=== PATIENT | female | born 1985 | race Caucasian/White ===

== ENCOUNTER 2017-09-10 06:30 | Inpatient (IN) | payer OTHER ==
[2017-09-10] MEDS ORDERED: BUTORPHANOL TARTRATE 1 MG/ML VIAL IVPB ONE (08:11)
[2017-09-10] MEDS ORDERED: PROMETHAZINE HCL 25 MG/1 ML VIAL IVPUSH ONE (08:11)
[2017-09-10] MEDS ORDERED: DEXTROSE 5%-LACTATED RINGERS 1,000 ML IV SCH (08:15)
--- NOTE | 2017-09-10 08:25 | HP ---
Past Medical History - Primary Care Physician PCP:: Nieves Maynard - Admission Chief Complaint: 32 yrs , 39.6/7 weeks iup , onset Lp since 4.00AM . History of Present Illness: PNC at , [facility] wt gain 30 lbs work UP : A pos, Rpr nr, Hbsag neg, Rubella immune , Sickle neg , CF screen neg , gc/ct neg , Hiv neg ,1 hr gtt 109,, Gbs neg , h/h 12.2/38.6 , plt 158 sono done by [facility] for growth monitoring .07/22/17 sono polo 15.0, efw 4'12"54%tile , bpp8/8 . Last pap 03/30/16 NILM History Source: Patient, Medical Record Limitations to Obtaining History: No Limitations - Past Medical History CATTYMAN: No: Migraine, Seizure Cardiovascular: No: HTN, Murmur Pulmonary: No: Asthma, COPD Gastrointestinal: Yes: Constipation. No: Gastritis Hepatobiliary: No: Choledocholithiasis, Hepatitis B Renal/: No: UTI ...: 2 ...Para: 1 (07/10/2015 7'9" [facility] ) ...Term: 1 ...LMP: 12/05/16 ... Weeks Gestation by Dates: 39.6 ...EDC by Dates: 09/11/17 ...EDC by Sono: 09/11/17 Heme/Onc: No: Anemia Infectious Disease: Yes: Tuberculosis (h/o expposure at age 11 years & treated) . No: AIDS, HIV, STD's Psych: No: Addictions, Anxiety, Bipolar, Depression, Panic, Psychosis, Schizophrenia - Past Surgical History Past Surgical History: Yes: None Hx Myomectomy: No Hx Transabdominal Cerclage: No - Smoking History Smoking history: Never smoked Have you smoked in the past 12 months: No Aproximately how many cigarettes per day: 0 - Alcohol/Substance Use Hx Alcohol Use: No History of Substance Use: reports: None Home Medications - Allergies Allergies/Adverse Reactions: Allergies Allergy/AdvReac Type Severity Reaction Status Date / Time No Known Allergies Allergy Verified 07/10/15 04:52 - Home Medications Home Medications: Ambulatory Orders Vit/Iron Fum/Folic AC [ Tablet] 1 tab PO DAILY 07/10/15 Acetaminophen [Tylenol .Regular Strength -] 650 mg PO Q3H PRN #0 tablet Benzocaine [Americaine 20% [place] -] 1 spray TP PRN PRN #0 bottle 07/11/15 Ferrous Sulfate [Feosol] 325 mg PO BID #60 ud 07/11/15 Ibuprofen [Motrin -] 200 mg PO Q4H PRN #0 tablet 07/11/15 Vitamins (Sjr) - 1 tab PO DAILY tablet 07/11/15 Witch Belen 50% (Tucks) [Tucks Pads -] 1 pad TP PRN PRN #0 pad 07/11/15 Miscellaneous Medical Supply [Breast Pump, Electronic] 1 each NR ASDIR #1 unit 07/12/15 Physical Exam - Maternity Vital Signs: Vital Signs Temperature 99.1 F 09/10/17 07:26 Pulse Rate 93 H 09/10/17 07:26 Respiratory Rate 20 09/10/17 07:26 Blood Pressure 105/70 09/10/17 07:26 O2 Sat by Pulse Oximetry (%) Selected Entries 09/10/17 08:24 Weight 140 lb Constitutional: Yes: Well Nourished, Mild Distress Eyes: Yes: WNL HENT: Yes: WNL, Normocephalic Neck: Yes: WNL Cardiovascular: Yes: WNL Lungs: Clear to auscultation Breast(s): Yes: WNL. No: Mass - Abdominal Exam/OB Fundal Height: 38 Number of Fetuses: Single Presentation: Vertex Contractions: Yes Regularity: Regular Intensity: Moderate (2-4 min) Monitor Mode: External Heart Rate (range): 150 Heart Rate Location: [facility] Category: I Accelerations: Uniform Decelerations: None - Vaginal Exam/OB Vaginal Bleediing: No Speculum Exam: No Dilatation (cm): 3-4 Effacement (%): 65 Amniotic Membrane Status: Intact Nitrazine Test: Negative Presentation: Vertex/Position Station: -3 - Physical Exam Musculoskeletal: Yes: WNL Extremities: Yes: WNL. No: Calf Tenderness Edema: Yes Edema: LLE: 1+, RLE: 1+ Integumentary: Yes: WNL Deep Tendon Reflex Grade: Normal +2 ...Motor Strength: WNL Psychiatric: Yes: WNL, Alert, Oriented - Labs Lab Results: Laboratory Tests 09/10/17 09/10/17 09/10/17 08:30 08:30 08:30 WBC 8.0 Hgb 13.5 Hct 39.6 D Plt Count 165 Neutrophils % 69.3 Lymphocytes % 20.5 D Monocytes % 9.2 PT with INR 10.10 INR 0.89 PTT (Actin FS) 24.9 L Sodium 140 Potassium 4.1 Chloride 106 Carbon Dioxide 24 BUN 6 L Creatinine 0.6 Random Glucose 85 Calcium 8.5 RPR Titer Blood Type 09/10/17 09/10/17 08:30 08:30 WBC Hgb Hct Plt Count Neutrophils % Lymphocytes % Monocytes % PT with INR INR PTT (Actin FS) Sodium Potassium Chloride Carbon Dioxide BUN Creatinine Random Glucose Calcium RPR Titer Nonreactive Blood Type A POSITIVE Problem List - Problems (1) with 39 completed weeks gestation Code(s): Z3A.39 - 39 WEEKS GESTATION OF (2) Labor established Code(s): [id number] - Assessment/Plan 32 yrs , 39.6/7 weeks in early labor , GBS neg plan : ambulate stadol + phenrgan prn for pain & or epidural labor analgesia trial of labor for vaginal delivery
[2017-09-10 08:31] VITALS: BMI 27.3
[2017-09-10] MEDS ORDERED: OXYTOCIN 30 UNITS in 0.9% NS 30 UNIT/500 ML INFUS.BAG IVPB ONE (08:38)
[2017-09-10 08:54] LABS: BASO % 0.4 % (0-2.0); EOS % 0.6 % (0-4.5); HEMATOCRIT 39.6 % (32.4-45.2); HEMOGLOBIN 13.5 GM/dL (10.7-15.3); LYMPH % 20.5 % (8-40); MCH 33.1 pg (25.7-33.7); MEAN CELL VOLUME 97.3 fl (80-96); MEAN PLT VOLUME 9.3 fl (7.5-11.1); MONO % 9.2 % (3.8-10.2); NEUT % 69.3 % (42.8-82.8); PLATELET COUNT 165 K/MM3 (134-434); RBC 4.08 M/mm3 (3.60-5.2); RDW 13.2 % (11.6-15.6)
[2017-09-10 09:17] LABS: ANION GAP 10 (8-16); BLOOD UREA NITROGEN 6 mg/dL (7-18); CALCIUM 8.5 mg/dL (8.5-10.1); CHLORIDE 106 mmol/L (98-107); CO2 24 mmol/L (21-32); CREATININE 0.6 mg/dL (0.55-1.02); GLUCOSE,RANDOM 85 mg/dL (74-106); POTASSIUM 4.1 mmol/L (3.5-5.1); SODIUM 140 mmol/L (136-145)
[2017-09-10 09:19] LABS: INR 0.89 (0.82-1.09); PROTHROMBIN TIME (PATIENT) 10.1 SEC (9.7-13.0)
[2017-09-10 09:21] LABS: ACTIVATED PTT 24.9 SECONDS (25.2-36.5)
[2017-09-10] MEDS ORDERED: OXYTOCIN 30 UNITS in 0.9% NS 30 UNIT/500 ML INFUS.BAG IVPB SCH (10:20)
--- NOTE | 2017-09-10 10:47 | PN ---
Progress Note, Labor Vaginal Exam #1 Labor Exam Date: 09/10/17 Labor Exam Time: 10:40 Heart Rate (range): 150 Dilatation: 4-5 Effacement (%): 70 Amniotic Membrane Status: Intact Presentation: Vertex/Position Station: -3 Remarks: fhr cat-1 uc irregular, 4-6 min plan pitocin augmentation Selected Entries 09/10/17 10:00 Temperature 98.1 F Pulse Rate 83 Blood Pressure 106/64 Vaginal Exam #2 Labor Exam Date: 09/10/17 Labor Exam Time: 13:15 Heart Rate (range): 150 Dilatation: 4 Effacement (%): 70 Amniotic Membrane Status: Ruptured Presentation: Vertex/Position Station: -2 Remarks: uc 1-2 min fhr cat-1 Selected Entries 09/10/17 13:00 Temperature 98.8 F Pulse Rate 73 Blood Pressure 110/57 Vaginal Exam #3 Labor Exam Date: 09/10/17 Labor Exam Time: 16:50 Heart Rate (range): 150 Dilatation: 8 Effacement (%): 100 Amniotic Membrane Status: Ruptured (forewater still felt , arom done clear fluid) Presentation: Vertex/Position Station: 0 Remarks: fhr cat-1 uc q1-2 min Selected Entries 09/10/17 17:00 Temperature 98.5 F Pulse Rate 84 Blood Pressure 138/67
[2017-09-10] MEDS ORDERED: LIDOCAINE HCL 1% PRESERVATIVE FREE - 30ML VIAL ONE (17:05)
[2017-09-10] MEDS ORDERED: OXYTOCIN 20 UNITS in 0.9% NS 40 UNIT/2,000 ML INFUS.BAG IV ONE (17:06)
[2017-09-10] MEDS ORDERED: BISACODYL 10 MG SUPP.RECT RC PRN (18:47)
[2017-09-10] MEDS ORDERED: ACETAMINOPHEN 325 MG TABLET (FP) PO PRN (18:47)
[2017-09-10] MEDS ORDERED: WITCH HAZEL 50% (TUCKS) 40 PAD/JAR PAD TP PRN (18:47)
[2017-09-10] MEDS ORDERED: METHYLERGONOVINE MALEATE 0.2 MG/1 ML AMP IM PRN (18:47)
[2017-09-10] MEDS ORDERED: oxyCODONE HCL 5 MG TABLET PO PRN (18:47)
[2017-09-10] MEDS ORDERED: BENZOCAINE 28 GM HEMORRHOIDAL OINTMENT TP PRN (18:47)
[2017-09-10] MEDS ORDERED: BENZOCAINE 20% 57 GM BOTTLE TP PRN (18:47)
[2017-09-10] MEDS ORDERED: OXYTOCIN 20 UNITS in 0.9% NS 20 UNIT/1,000 ML INFUS.BAG IV SCH (19:00)
--- NOTE | 2017-09-10 19:05 | PN ---
Delivery - Delivery Vaginal Delivery: No Problems, Spontaneous (baby delievered in Vx, VELIA position , shoulder delievered without difficulty . placenta delivered without problem 2nd degree laceration noted sutured in layers with Chr catgut #2/0 under local anesthesia . Pr exam mucosa & sphincter intact . 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 gbs neg . pnc at [address] [place] [address] Pitocin augmentation given pt did not take any labor analgesia intrapartum course uneventful
[2017-09-10] MEDS: IBUPROFEN 600 MG TABLET (FP) PO PRN (20:57)
[2017-09-11] MEDS: FERROUS SO4 325 MG TABLET (FP) PO SCH ×2 (07:46→17:46)
[2017-09-11 08:14] LABS: BASO % 0.5 % (0-2.0); EOS % 0.5 % (0-4.5); HEMATOCRIT 33.1 % (32.4-45.2); HEMOGLOBIN 11.4 GM/dL (10.7-15.3); LYMPH % 19.1 % (8-40); MCHC 34.4 g/dl (32.0-36.0); MEAN PLT VOLUME 8.7 fl (7.5-11.1); MONO % 9.4 % (3.8-10.2); NEUT % 70.5 % (42.8-82.8); PLATELET COUNT 145 K/MM3 (134-434); RBC 3.35 M/mm3 (3.60-5.2); RDW 13.1 % (11.6-15.6); WHITE BLOOD COUNT 10.4 K/mm3 (4.0-10.0)
--- NOTE | 2017-09-11 08:55 | PN ---
Post Progress Note - Subjective Subjective: c/o perineal soreness Post Day: 1 Type of Delivery: Vital Signs: Vital Signs Temperature 98.4 F 09/11/17 08:20 Pulse Rate 73 09/11/17 08:20 Respiratory Rate 20 09/11/17 08:20 Blood Pressure 84/52 09/11/17 08:20 O2 Sat by Pulse Oximetry (%) 99 09/10/17 19:15 Breast Exam: Yes: Soft, Other (BF ). No: Engorged Uterus: Yes: Fundus Firm, Fundus below umbilicus, Non-tender Lochia: Yes: Rubra Lochia, amount: Moderate Extremities: Yes: Calves non-tender Perineum: Yes: Laceration (healing ) Activity: Ambulating - Labs Labs: CBC WBC 10.4 K/mm3 (4.0-10.0) H 09/11/17 07:40 RBC 3.35 M/mm3 (3.60-5.2) L 09/11/17 07:40 Hgb 11.4 GM/dL (10.7-15.3) 09/11/17 07:40 Hct 33.1 % (32.4-45.2) D 09/11/17 07:40 MCV 99.0 fl (80-96) H 09/11/17 07:40 MCH 34.0 pg (25.7-33.7) H 09/11/17 07:40 MCHC 34.4 g/dl (32.0-36.0) 09/11/17 07:40 RDW 13.1 % (11.6-15.6) 09/11/17 07:40 Plt Count 145 K/MM3 (134-434) 09/11/17 07:40 MPV 8.7 fl (7.5-11.1) 09/11/17 07:40 Absolute Neuts (auto) 7.4 # 09/11/17 07:40 Neutrophils % 70.5 % (42.8-82.8) 09/11/17 07:40 Lymphocytes % 19.1 % (8-40) 09/11/17 07:40 Monocytes % 9.4 % (3.8-10.2) 09/11/17 07:40 Eosinophils % 0.5 % (0-4.5) 09/11/17 07:40 Basophils % 0.5 % (0-2.0) 09/11/17 07:40 Nucleated RBC % 0 % (0-0) 09/11/17 07:40 Problem List - Problems (1) with 39 completed weeks gestation Code(s): Z3A.39 - 39 WEEKS GESTATION OF (2) Labor established Code(s): [id number] - Assessment/Plan stable plan discharge tomorrow
[2017-09-11] MEDS: PRENATAL VITAMINS W/ FOLIC ACID TABLET (FP) PO SCH (09:26)
[2017-09-11] MEDS: IBUPROFEN 600 MG TABLET (FP) PO PRN (18:56)
[2017-09-11] MEDS ORDERED: SENNOSIDES/DOCUSATE COMBO (SENNA PLUS) TABLET (UD) PO PRN (22:00)
--- NOTE | 2017-09-12 07:38 | DS ---
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 median episiotomy) Breast(s): Yes: WNL (BF , not engorged) Musculoskeletal: Yes: WNL Extremities: Yes: WNL. No: Calf Tenderness Edema: LLE: Trace, RLE: Trace Integumentary: Yes: WNL Neurological: Yes: WNL ...Motor Strength: WNL Psychiatric: Yes: WNL Labs: CBC, BMP 09/11/17 07:40 09/10/17 08:30 Delivery - Delivery Vaginal Delivery: No Problems, Spontaneous (baby delievered in Vx, VELIA position , shoulder delievered without difficulty . placenta delivered without problem 2nd degree laceration noted sutured in layers with Chr catgut #2/0 under local anesthesia . Pr exam mucosa & sphincter intact . 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 gbs neg . pnc at [address] [place] [address] Pitocin augmentation given pt did not take any labor analgesia intrapartum course uneventful pp course uneventful. discharge today Discharge Summary Reason For Visit: LABOR Current Active Problems Labor established (Acute) Normal spontaneous vaginal delivery (Acute) with 39 completed weeks gestation (Acute) Condition: Stable - Instructions Diet, Activity, Other Instructions: Post Instructions DIET: Continue good diet high in protein, calcium, and iron rich foods. Drink at least eight (8) glasses of water daily in addition to other fluids. ___ Regular diet MEDICATIONS: Continue vitamins and iron as previously directed. Motrin and Tylenol may be taken for minor discomfort. ACTIVITY: Mild to moderate exercise may be started in two (2) weeks. Take frequent rest periods. Resume normal activity after six (6) week check up. WOUND CARE OF OPERATIVE SITE: Continue use of perineal bottle until vaginal discharge stops. Keep area clean. Shower daily. Keep abdominal wound dry. Report any drainage or redness to physician. Tub baths, tampons and douches are not permitted for [address] Breast feeding & or Bottle feeding BREAST CARE: (For those that are not breast feeding): If engorgement occurs: Wear tight fitting bra. Take Tylenol or Motrin for pain. Apply cold packs (ice in bags to each breast ) FAMILY PLANNING: There are many control alternatives to pursue and they should be discussed at your first office visit. You may resume sexual activity after your six (6) week check up. (Remember, breast feeding is not a contraceptive) NEXT PHYSICIAN APPOINTMENT: Be certain to call for a six (6) week appointment, unless otherwise directed. Call Clinic or got to Emergency Dept if you have any of the following: Heavy vaginal bleeding Painful urination Leg pain Unusual odor noted to vaginal bleeding High fever Red streaking noted on breast Referrals: Nieves Maynard MD [Staff Physician] - Disposition: HOME - Home Medications Comprehensive Discharge Medication List: Ambulatory Orders Vit/Iron Fum/Folic AC [ Tablet] 1 tab PO DAILY 07/10/15 Acetaminophen [Tylenol .Regular Strength -] 650 mg PO Q3H PRN #0 tablet Benzocaine [Americaine 20% [place] -] 1 spray TP PRN PRN #0 bottle 07/11/15 Ferrous Sulfate [Feosol] 325 mg PO BID #60 ud 07/11/15 Ibuprofen [Motrin -] 200 mg PO Q4H PRN #0 tablet 07/11/15 Vitamins (Sjr) - 1 tab PO DAILY tablet 07/11/15 Witch [place] 50% (Tucks) [Tucks Pads -] 1 pad TP PRN PRN #0 pad 07/11/15 Miscellaneous Medical Supply [Breast Pump, Electronic] 1 each NR ASDIR #1 unit 07/12/15 Acetaminophen [Tylenol .Regular Strength -] 650 mg PO Q3H PRN tablet 09/11/17 Benzocaine [Americaine 20% [place] -] 1 spray TP DAILY PRN bottle 09/11/17 Ferrous Sulfate [Feosol] 325 mg PO BIDWM tab 09/11/17 Ibuprofen [Motrin -] 200 mg PO Q4H PRN tablet 09/11/17 Vitamins (Sjr) - 1 tab PO DAILY tablet 09/11/17 Witch [place] 50% (Tucks) [Tucks Pads -] 1 pad TP DAILY PRN pad 09/11/17
[2017-09-12] MEDS: FERROUS SO4 325 MG TABLET (FP) PO SCH (08:29)
[2017-09-12] MEDS: PRENATAL VITAMINS W/ FOLIC ACID TABLET (FP) PO SCH (09:13)
[2017-09-12 09:25] VITALS: BP 108/64; PULSE 71; TEMP 98.3
== END 2017-09-12 11:00 | disposition home or self-care (01) | DRG 560 ==
LOC: JDEL 06:30 → JLDR 07:25 → J3W 20:02
PROVIDERS: ADMIT Obstetrics & Gynecology; ATTEND Obstetrics & Gynecology
PROC: 0KQM0ZZ Repair Perineum Muscle, Open Approach (ICD-10-PCS; principal; 2017-09-10)
PROC: 10E0XZZ Delivery of Products of Conception, External Approach (ICD-10-PCS; 2017-09-10)
DX: O70.1 Second degree perineal laceration during delivery (principal); Z3A.39 39 weeks gestation of pregnancy; Z37.0 Single live birth
CPT/HCPCS: 36415; 59409; 71046-TC-FY; 80048; 85025; 85610; 85730; 86593; 86850; 86900; 86901

== ENCOUNTER 2017-11-03 05:24 | Day surgery (SDC) | payer OTHER ==
[2017-11-01 16:55] VITALS: BMI 24.2
--- NOTE | 2017-11-03 10:08 | HP ---
Past Medical History - Primary Care Physician PCP:: Nieves Maynard - Admission Chief Complaint: 32 yes , , LD 09/10/17 requests for voluntory sterlization. pt breast feeding History of Present Illness: pt has care at [address] [place] [address] . Last & delivery & post period was uneventful . 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 No: Gastritis Renal/: No: UTI Reproductive: Yes: Other (Last pap 03/30/2016 NILM) ...: 2 ...Para: 2 ...Term: 2 (G1 Male 7'9", G2 09/10/2017 girl. 8".0") ...LMP: 10/24/17 (pt not ) Heme/Onc: No: Anemia Infectious Disease: Yes: Tuberculosis (h/o expposure at age 11 years & treated) . No: AIDS, HIV, STD's - Past Surgical History Past Surgical History: Yes: None Hx Myomectomy: No Hx Transabdominal Cerclage: No - Smoking History Smoking history: Never smoked Have you smoked in the past 12 months: No Aproximately how many cigarettes per day: 0 - Alcohol/Substance Use Hx Alcohol Use: No History of Substance Use: reports: None Home Medications - Allergies Allergies/Adverse Reactions: Allergies Allergy/AdvReac Type Severity Reaction Status Date / Time No Known Allergies Allergy Verified 11/01/17 16:51 - Home Medications Home Medications: Ambulatory Orders Vitamins (Sjr) - 1 tab PO DAILY tablet 09/11/17 Ferrous Sulfate [Iron] 325 mg PO DAILY 11/01/17 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 No: Bleeding Cervix: Yes: Normal. No: Bleeding, Cerv Motion Tenderness Uterus: Yes: Normal, Freely Moveable, Anteverted. No: Mass, Tender Adnexa: Normal: Bilateral, Not Palpable: Bilateral Breast(s): Yes: WNL, Other (milk secretion) Musculoskeletal: Yes: WNL Extremities: Yes: WNL Edema: No Integumentary: Yes: WNL. No: Tattoos Neurological: Yes: WNL, Alert, Oriented ...Motor Strength: WNL Psychiatric: Yes: WNL, Alert Labs: Laboratory Tests 09/10/17 11/01/17 11/01/17 08:30 16:42 16:42 WBC 6.1 RBC 4.10 Hgb 13.5 Hct 39.2 D Plt Count 224 D PT with INR INR PTT (Actin FS) 24.9 L Sodium 142 Potassium 4.3 Chloride 104 Carbon Dioxide 29 Creatinine 0.7 Random Glucose 84 AST 45 H ALT 111 H Beta HCG, Quant < 1.0 11/01/17 16:42 WBC RBC Hgb Hct Plt Count PT with INR 11.30 INR 1.00 PTT (Actin FS) Sodium Potassium Chloride Carbon Dioxide Creatinine Random Glucose AST ALT Beta HCG, Quant Problem List - Problem (1) Multiparity Code(s): Z64.1 - PROBLEMS RELATED TO MULTIPARITY Assessment/Plan 32 yrs , lD 09/10/17 , requets for voluntory -sterlization Plan ; Laproscopic Bilateral Salpingectomy pt is aware of r/b/a not ltd to [place] problems , pneumonia, or hemorrhage , infection, injury, bladder, bowel, menorrhagia , dysmenorrhea etc possible ectopic pregn , no possiblity of reversal of BTL
[2017-11-03] MEDS ORDERED: ONDANSETRON 4 MG/2 ML VIAL ONE (11:40)
[2017-11-03] MEDS ORDERED: fentaNYL CITRATE 250 MCG/5 ML VIAL ONE (11:40)
[2017-11-03] MEDS ORDERED: PROPOFOL 20 ML ONE (11:40)
[2017-11-03] MEDS ORDERED: ceFAZolin SODIUM 1 GM VIAL ONE (11:40)
[2017-11-03] MEDS ORDERED: DEXAMETHASONE SOD PHOSPHATE 4 MG/1 ML VIAL ONE (11:40)
[2017-11-03] MEDS ORDERED: MIDAZOLAM HCL 2 MG/2 ML SINGLE DOSE VIAL ONE (11:40)
[2017-11-03] MEDS ORDERED: KETOROLAC TROMETHAMINE 30 MG/1 ML VIAL ONE (11:40)
[2017-11-03] MEDS ORDERED: ROCURONIUM BROMIDE 50 MG/5 ML VIAL ONE (11:40)
[2017-11-03] MEDS ORDERED: SODIUM CHLORIDE 0.9% P/F 10 ML VIAL IJ ONE (11:42)
[2017-11-03] MEDS ORDERED: ceFAZolin SODIUM 1 GM VIAL IVPB ONE (12:00)
[2017-11-03] MEDS ORDERED: NEOSTIGMINE METHYLSULFATE 0.5 MG/ML - 10 ML MDV ONE (12:40)
[2017-11-03] MEDS ORDERED: BUPIVACAINE HCL/PF (5 MG/ML) 30 ML VIAL IJ ONE (12:40)
[2017-11-03] MEDS ORDERED: IBUPROFEN 600 MG TABLET (FP) PO PRN (12:52)
[2017-11-03] MEDS ORDERED: ACETAMINOPHEN 325 MG TABLET (FP) PO PRN (12:52)
[2017-11-03] MEDS ORDERED: oxyCODONE HCL 5 MG TABLET PO PRN (12:52)
--- NOTE | 2017-11-03 13:00 | OP ---
Operative Note - Note: Operative Date: 11/03/17 Pre-Operative Diagnosis: multiparity, voluntory sterlization Operation: laproscopic bilateral salpingectomy Findings: ut av ns , utero cervical length 8 cm both tubes & ovaries normal both tubes removed entire length hemostasis noted Surgeon: Nieves Maynard Manager Epic: Gay Solitario Anesthesiologist/ANNEALER: Vee Cardoza Anesthesia: General Specimens Removed: lt tube. rt tube Estimated Blood Loss (mls): 1 Drains, Volume Out (mls): 300 Operative Report Dictated: Yes
--- NOTE | 2017-11-03 13:04 | SURG ---
Surgery Movement Assembly Final Inspector Note Movement Assembly Final Inspector: Gay Solitario PA-C Date of Service: 11/03/17 Diagnosis: multiparity, voluntory sterlization Procedure: laproscopic bilateral salpingectomy I was present for the entirety of the operative procedure. For further detail, please refer to operative report. Visit type - Case Type Case Type: Scheduled - Emergency Emergency Visit: No - New patient This patient is new to me today: Yes Date on this admission: 11/03/17
[2017-11-03] MEDS ORDERED: ONDANSETRON 4 MG/2 ML VIAL IVPUSH PRN (13:26)
[2017-11-03] MEDS ORDERED: LACTATED RINGERS SOLUTION 1,000 ML IV SCH (13:30)
[2017-11-03 13:55] VITALS: TEMP 98.8
--- NOTE | 2017-11-03 14:13 | OP ---
DATE OF OPERATION: 11/03/2017 PREOPERATIVE DIAGNOSIS: Multiparity, voluntary sterilization. SURGEON: Nieves Maynard MD LEASE ADMINISTRATION SUPERVISOR SURGEON: SPENCER Jones ANESTHESIOLOGIST: Shiv Saul MD and Vee Cardoza CRNA FINDINGS: This is a 32-year-old, 2, para 2-0-0-2. Last delivery was on September 10, 2017, . She requests for voluntary sterilization. PROCEDURE: Patient was taken to the operating room table. General anesthesia was given. She was placed in lithotomy position. Abdomen, pubis, perineum, and vagina were painted with Betadine, draped in usual manner. Pelvic examination was done. Uterus was anteverted, normal size. Cervix was posterior. Adnexa were not palpable. Weighted speculum was put. The anterior lip of the cervix was held with a single-tooth tenaculum. Uterine cavity was sounded. It was 8 cm. A ZUMI cannula was introduced into the uterine cavity. Then, single-tooth tenaculum and weighted speculum were removed, and Hodgson catheter was placed. Then, gloves were changed and proceeded with a laparoscopy. Small incision was made just below the umbilicus , and a Veress needle was introduced into the peritoneal cavity. CO2 was insufflated into the peritoneal cavity. Then, 5-mm trocar and cannula were introduced into the peritoneal cavity, and with the laparoscope, the insertion into the peritoneal cavity was confirmed. Then, the uterus was normal. Both tubes and ovaries were normal. Upper abdomen was normal. Then, first the left tube and then the right tube entire length was cauterized and cut with the LigaSure. Hemostasis was verified, and the left tube and the right tube were separately submitted for pathology examination. Instruments were removed and deep suture was taken with 4-0 Biosyn and the skin was approximated with Dermabond. Initially, after 5-mm trocar and cannula introduced, there were 2 more trocars that were introduced first from the left lower quadrant and then from the right lower quadrant. A 5-mm trocar and cannula were introduced to enable the insertion of the instruments, and a one-side grasper was introduced. Another side LigaSure was introduced, and the tube was held with the grasper and with the LigaSure in multiple bites just below the tube in the mesosalpinx area, the tube was cauterized and cut until the whole tube was freed, and the procedure done on both sides, left side and then the right side. Hemostasis was checked Then, the trocars first from the right side and then the left side were removed, and after removing the gas, the umbilical trocar was removed. Then, the skin incisions were closed. The blood loss was less than 1 mL. ZUMI cannula was removed, and the Hodgson catheter was removed. Urine output was clear 300 mL intraoperatively. Patient tolerated the procedure well, and she was transferred to the recovery room in stable condition. Richard [id number] MTDFiordaliza
[2017-11-03 16:02] VITALS: BP 105/57; PULSE 74
--- NOTE | 2017-11-04 17:38 | PATH ---
Surgical Pathology Report Patient Name: JEANINE RANKIN [facility]. Rec. #: [id number] /Age/Gender: 1985 (Age: 32) / F Account: [id number] Location: [facility] SURGICAL Taken: 11/03/2017 Received: 11/03/2017 Reported: 11/04/2017 Physicians: Nieves Maynard M.D. Specimen(s) Received A: RIGHT FALLOPIAN TUBE B: LEFT FALLOPIAN TUBE Clinical History Multiparity Final Diagnosis A. FALLOPIAN TUBE, RIGHT, SALPINGECTOMY: UNREMARKABLE FALLOPIAN TUBE INCLUDING FIMBRIATED END AND FULL LUMINAL PORTION. B. FALLOPIAN TUBE, LEFT, SALPINGECTOMY: UNREMARKABLE FALLOPIAN TUBE INCLUDING FIMBRIATED END AND FULL LUMINAL PORTION. Electronically Signed Sally Ybarra M.D. Gross Description A. Received in formalin labeled "right tube," is a 5 cm in length fimbriated fallopian tube. The outer surface is herrera-red and smooth. Sectioning reveals an unremarkable lumen. Gasser Machine Operator sections are submitted in 2 cassettes as follows: 1-fimbria; 2-cross sections of fallopian tube. B. Received in formalin labeled "left tube," is a 5 cm in length fimbriated fallopian tube. The outer surface is herrera-red and smooth. Sectioning reveals an unremarkable lumen. Gasser Machine Operator sections are submitted in 2 cassettes as follows: 1-fimbria; 2-cross sections of fallopian tube. /11/03/2017 saudi/11/03/2017
== END 2017-11-03 16:02 | disposition home or self-care (01) ==
LOC: JASU-SURG 05:24
PROVIDERS: ATTEND Obstetrics & Gynecology
PROC: 0U574ZZ Destruction of Bilateral Fallopian Tubes, Percutaneous Endoscopic Approach (ICD-10-PCS; principal; 2017-11-03 11:00)
DX: Z30.2 Encounter for sterilization (principal)
CPT/HCPCS: 88302-TC; 94760